=== PATIENT | male | born 1955 | race Caucasian/White ===

== ENCOUNTER → 2020-12-09 | Outpatient (CLI) | payer OTHER | LOC: KOH-I 14:17 | DX: M79.89 Other specified soft tissue disorders (principal); M25.561 Pain in right knee | CPT/HCPCS: 73562; 93971 ==

== ENCOUNTER → 2020-12-24 | Outpatient (CLI) | payer OTHER | LOC: KOH-I 09:22 | DX: M25.561 Pain in right knee (principal); S83.271A Complex tear of lateral meniscus, current injury, right knee, initial encounter | CPT/HCPCS: 73721 ==

== ENCOUNTER → 2021-08-13 | Outpatient (CLI) | payer OTHER | LOC: KOH-I 08:08 | DX: M25.511 Pain in right shoulder (principal); G89.29 Other chronic pain; M19.011 Primary osteoarthritis, right shoulder | CPT/HCPCS: 73030 ==

== ENCOUNTER → 2022-04-14 | Outpatient (CLI) | payer OTHER | LOC: KOH-I 13:58 | DX: N28.1 Cyst of kidney, acquired (principal) | CPT/HCPCS: 76775 ==